=== PATIENT | female | born 1940 | race Caucasian/White ===

== ENCOUNTER 2022-04-30 10:33 | Emergency (ER) | payer MEDICARE, BC, SELFPAY ==
[2022-04-30 10:58] VITALS: BP 151/82; PULSE 89; RESP 16; TEMP 36.7; O2SAT 94; BMI 25.7
--- NOTE | 2022-04-30 11:16 | ED.GENADULT ---
HPI - General Adult General Time Seen by Provider: 11:17 Date Seen: 04/30/22 Chief complaint: Extremity Pain/Injury, Lower Stated complaint: Left leg infection Time Seen by Provider: 04/30/22 11:05 Source: patient, family and RN notes reviewed Mode of arrival: ambulatory Limitations: no limitations History of Present Illness HPI narrative: Madison is an 82-year-old female living at the [facility] brought in with concern of a wound on her left lower extremity. Nursing staff contacted them yesterday about the wound. Today it seemed worse and they are bringing her into the ER. They have not been documenting any fevers. LC denies any fevers or chills. She states it is not painful. Her daughter is not aware of any history of MRSA. 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 Her initial injury was from scraping it on a car door about a week ago. On review of her chart, last Tdap appears to be 07/12/2011. I will have nurses double check this on the [place] immunization website but will recommend immunization with TD if this indeed was her last dose. Related Data Home Medications Medication Instructions Recorded Confirmed aspirin 81 mg chewable tablet 81 mg PO QDAY 01/21/22 04/30/22 atorvastatin 40 mg tablet 40 mg PO .HS 01/21/22 04/30/22 donepezil 5 mg tablet 5 mg PO .HS 01/21/22 04/30/22 furosemide 20 mg tablet 20 mg PO QAM 01/21/22 04/30/22 omeprazole 20 mg tablet,delayed 20 mg PO QDAY 01/21/22 04/30/22 release paroxetine HCl 10 mg tablet 10 mg PO .HS 01/21/22 04/30/22 Previous Rx's Medication Instructions Recorded doxycycline monohydrate 100 mg 100 mg PO BID #20 tabs 04/30/22 tablet Allergies Allergy/AdvReac Type Severity Reaction Status Date / Time No Known Drug Allergies Allergy Verified 04/30/22 11:03 Review of Systems Status of ROS: Reports: unobtainable due to mental status Narrative: Patient's review of systems is done but do question her reliability due to her dementia. PFSH PFSH Social History Smoking Status: Former smoker What tobacco products do you use: cigarettes Smoking quit date/years: >15 years ago Do you use any of these nicotine containing products: None Second hand tobacco smoke exposure: No How often do you have a drink containing alcohol: never AUDIT-C Alcohol total score: 0 Non-prescribed substance use: denies use service: No Exam Const: Vital Signs, click to edit/add: Vital Signs - 24 hr 04/30/22 10:58 Temperature 98.1 F Pulse Rate [Pulse Oximeter] 89 Respiratory Rate 16 Blood Pressure [Ri ght Upper Arm] 151/82 H Pulse Oximetry 94 Oxygen Delivery Me thod Room Air Documenting provider has reviewed patient's vital signs: yes Common normals: no apparent distress, healthy appearing, alert and well nourished General appearance: cooperative, comfortable and well kempt Nutritional appearance: overweight Orientation/consciousness: Yes awake and Yes oriented to person HENMT: Common normals: normocephalic, head/scalp atraumatic and hearing grossly normal bilaterally Head and scalp: normocephalic and atraumatic Eye: Common normals: PERRL, EOMs intact bilaterally, conjunctivae normal and no scleral icterus Conjunctiva: conjunctiva(e) normal Pupil: PERRL Neck & C-Spine: Common normals: full ROM, no lymphadenopathy and supple Resp: Common normals: normal respiratory effort, no retractions, no use of accessory muscles and clear to auscultation bilaterally Auscultation: clear to auscultation bilaterally Cardio: Common normals: regular rate, regular rhythm, S1 normal heart sound, S2 normal heart sound, no gallops, no clicks and no murmurs Rate: regular rate Rhythm: regular rhythm Heart sounds: S1 normal and S2 normal GI: Common normals: Normal to inspection, nondistended, normoactive bowel sounds present, soft to palpation, non-tender and no hepatosplenomegaly Palpation: soft and no hepatosplenomegaly Extremity: Other: Patient has a bandage on her left lower extremity and underlying wound is along the proximal 1/3 of the lateral calf anteriorly. There is an open wound, no purulent drainage at this time. Looks as if she actually had a mild laceration from a the injury a week ago. There is surrounding erythema on the leg consistent with cellulitis. There is some increased swelling of the area but no generalized edema of the leg. She is tender when I palpate right along the wound, there is no fluctuance. Neuro: Sensorium/orientation: awake, alert and oriented to person Psych: Appearance: well kempt Course Course Hospital Course: Will place an IV is I will likely give her initial dose of antibiotics IV. We are going to get baseline labs on her, document creatinine and get a CBC in baseline inflammatory markers though there is something to compare to should she worsen. At this time, looking at her clinically, do not think she needs hospitalization but will weigh laboratory values in making this decision. Will ensure that her tetanus has not been done sooner on the [place] immunization website. Otherwise we will recommend her tetanus to be updated as well. Reevaluation(s) Reevaluation #1: Have reviewed labs, sed rate is still pending but overall these are looking good. Given that she does live in a fpc environment, I do think we need to consider MRSA being a higher risk for her. Right now she is not toxic and does not require hospitalization but I feel doing initial IV dose of antibiotics may benefit her. We will use doxycycline 100 mg IV. I did order a Tdap for her. Will discharge her on orals with outpatient follow-up. Have reviewed with them that this wound will need to heal by secondary intention. Time: 12:16 Reevaluation #2: Nursing staff was unsuccessful getting an IV in her, did state they could stop trying. She was difficult to obtain IV access 10. Clinically, given that they were having difficulty given an IV, I do not feel strongly that she has to have IV antibiotics in this situation. We will order dose of oral doxycycline for her now. Nursing staff will redressed her wound. Time: 12:44 Vital Signs Vital signs: Initial Vital Signs Temperature 98.1 F 04/30/22 10:58 Temperature Source Temporal Artery Scan 04/30/22 10:58 Pulse Rate 89 04/30/22 10:58 Pulse Rhythm 04/30/22 10:58 Pulse Strength 3+ Normal 04/30/22 10:58 Respiratory Rate 16 04/30/22 10:58 Blood Pressure 151/82 H 04/30/22 10:58 Blood Pressure Mean 105 04/30/22 10:58 Blood Pressure Position Sitting 04/30/22 10:58 Pulse Oximetry 94 04/30/22 10:58 Oxygen Delivery Method 04/30/22 10:58 Vital Signs Temperature 98.1 F 04/30/22 10:58 Pulse Rate 89 04/30/22 10:58 Respiratory Rate 16 04/30/22 10:58 Blood Pressure 151/82 H 04/30/22 10:58 Pulse Oximetry 94 04/30/22 10:58 Oxygen Delivery Method 04/30/22 10:58 Temperature 98.1 F 04/30/22 10:58 Pulse Rate 89 04/30/22 10:58 Respiratory Rate 16 04/30/22 10:58 Blood Pressure 151/82 H 04/30/22 10:58 Pulse Oximetry 94 04/30/22 10:58 Oxygen Delivery Method 04/30/22 10:58 Medical Decision Making Lab Data Lab results reviewed: Yes I reviewed the patient's lab results Labs: Lab Results 04/30/22 04/30/22 04/30/22 Range/Units 11:35 11:35 11:35 WBC 7.92 (4.50-11.00) K/uL RBC 4.22 (4.00-5.20) m/uL Hgb 13.0 (12.0-16.0) gm/dL Hct 39.5 (33.0-51.0) % MCV 94 (80-100) fL MCH 31 (26-34) pg MCHC 33 (32-36) gm/dL RDW Coeff of Mendoza 12.7 (11.5-15.5) % Plt Count 255 (140-440) K/uL Neut % (Auto) 58.8 (42.0-72.0) % Lymph % (Auto) 30.2 (20-44) % [place] % (Auto) 10.0 (0.0-11.0) % Eos % (Auto) 0.8 (0.0-7.0) % Baso % (Auto) 0.1 (0.0-3.0) % Neut # (Auto) 4.66 (1.7-7.0) K/uL Lymph # (Auto) 2.39 (0.90-2.90) K/uL [place] # (Auto) 0.80 (0.00-0.90) K/UL Eos # (Auto) 0.06 (0.00-0.50) K/uL Baso # (Auto) 0.01 (0.00-0.30) K/uL Abs Immat Gran (auto) 0.01 (0.00-0.30) K/uL ESR 86 H (2-20) mm/hr Sodium 139 (135-149) mmol/L Potassium 4.4 (3.6-5.1) mmol/L Chloride 103 (96-114) mmol/L Carbon Dioxide 28 (20-32) mmol/L BUN 18 (7-30) mg/dL Creatinine 1.0 (0.5-1.5) mg/dL Estimated Creat Clear 37.12 Estimated GFR 57 ml/min Glucose 120 H (60-115) mg/dL Calcium 9.4 (8.4-10.6) mg/dL C-Reactive Protein 0.8 (0.5-1.0) mg/dL Critical Care Time Critical Care Time Critical Care Time: No Discharge Plan Discharge Clinical Impression: Wound cellulitis Condition: Stable Instructions: Cellulitis (ED) Additional Instructions: Start oral doxycycline tonight and take as prescribed. Need to follow up in clinic in 2-3 days for recheck of this wound. Would recommend daily dressing changes or increased frequency if needed. Would recommend bacitracin, nonstick bandage and gauze if needed. If she develops fever, feel like she is becoming ill or having worsening cellulitis, do need to return to the ER for further evaluation. Prescriptions: New doxycycline monohydrate 100 mg tablet 100 mg PO BID Qty: 20 0RF No Action furosemide 20 mg tablet 20 mg PO QAM omeprazole 20 mg tablet,delayed release (DR/EC) 20 mg PO QDAY aspirin 81 mg tablet,chewable 81 mg PO QDAY atorvastatin 40 mg tablet 40 mg PO .HS donepezil 5 mg tablet 5 mg PO .HS paroxetine HCl 10 mg tablet 10 mg PO .HS Follow Up/Referrals: Osmani Rojas MD [Primary Care Provider] - Stand Alone Forms: [facility] Info Instructions
[2022-04-30 11:39] LABS: Basophils Absolute Auto 0.01 K/uL (0.00-0.30); Basophils Percent Auto 0.1 % (0.0-3.0); Eosinophils Absolute Auto 0.06 K/uL (0.00-0.50); Eosinophils Percent Auto 0.8 % (0.0-7.0); Hematocrit 39.5 % (33.0-51.0); Immature Granulocytes Abs Auto 0.01 K/uL (0.00-0.30); Lymphocytes Absolute Auto 2.39 K/uL (0.90-2.90); Lymphocytes Percent Auto 30.2 % (20-44); Mean Corpuscular HGB Conc 33 gm/dL (32-36); Mean Corpuscular Hemoglobin 31 pg (26-34); Mean Corpuscular Volume 94 fL (80-100); Neutrophils Absolute Auto 4.66 K/uL (1.7-7.0); Neutrophils Percent Auto 58.8 % (42.0-72.0); Platelet Count* 255 K/uL (140-440); RDW Coefficient of Variation % 12.7 % (11.5-15.5); Red Blood Count 4.22 m/uL (4.00-5.20); White Blood Count* 7.92 K/uL (4.50-11.00)
[2022-04-30 11:46] LABS: Slide Review Reflex No
[2022-04-30 11:52] LABS: Chloride* 103 mmol/L (96-114)
[2022-04-30 11:53] LABS: Potassium* 4.4 mmol/L (3.6-5.1); Sodium* 139 mmol/L (135-149)
[2022-04-30 11:55] LABS: Est. Creatinine Clearance* 37.12; Estimated Glomerular Filt Rate 57 ml/min
[2022-04-30 11:56] LABS: Blood Urea Nitrogen* 18 mg/dL (7-30); Calcium* 9.4 mg/dL (8.4-10.6); Carbon Dioxide* 28 mmol/L (20-32); Glucose* 120 mg/dL (60-115)
[2022-04-30 11:59] LABS: C Reactive Protein* 0.8 mg/dL (0.5-1.0)
[2022-04-30 12:27] LABS: Erythrocyte SedimentationRate* 86 mm/hr (2-20)
[2022-04-30] MEDS: TETANUS/DIPHTH/PERTUSSIS 0.5 ML SYRINGE IM (12:52)
== END 2022-04-30 13:08 | disposition home or self-care (01) ==
PROVIDERS: Emergency Provider Family Medicine; PCP Family Medicine
DX: L03.116 Cellulitis of left lower limb (principal); F03.90 Unspecified dementia, unspecified severity, without behavioral disturbance, psychotic disturbance, mood disturbance, and anxiety; Z79.82 Long term (current) use of aspirin; Z87.891 Personal history of nicotine dependence
CPT/HCPCS: 36415; 80048; 85025; 85651; 86140; 90471; 90715; 99284

== ENCOUNTER 2022-11-01 16:54 | Emergency (ER) | payer MEDICARE, BC, SELFPAY ==
[2022-11-01 17:08] VITALS: BP 168/84; PULSE 96; RESP 16; TEMP 36.2; O2SAT 97; BMI 26.6
--- NOTE | 2022-11-01 17:25 | CRLHL7_ITS ---
For Patients: As a result of the Cures Act, medical imaging exams and procedure reports are released immediately into your electronic medical record. You may view this report before your referring provider. If you have questions, please contact your health care provider. HISTORY: Left-sided abdominal pain. Suspected diverticulitis. History of appendectomy. TECHNIQUE: CT abdomen and pelvis with IV contrast. 74 mL [id number] IV. COMPARISON: CT abdomen and pelvis 01/29/2013. FINDINGS: Abdomen: No liver lesions. No bile duct dilation. No pancreatic mass or pancreatic duct dilation. No peripancreatic inflammatory change. No spleen lesions. Spleen is normal size. No adrenal nodules. Kidneys enhance symmetrically. Two subcentimeter hypodense lesions in the right kidney are too small to characterize but are likely cysts. No hydronephrosis. Small hiatal hernia. No dilated bowel. Colonic diverticulosis. No pericolonic inflammatory change. No free fluid. No lymphadenopathy. Atherosclerosis. Ectasia of the infrarenal abdominal aorta. Pelvis: No lymphadenopathy. Musculoskeletal: Right total hip arthroplasty. 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 Degenerative changes of the spine. Lower chest: Mild atelectasis in both lung bases. Atherosclerotic calcifications. IMPRESSION: 1. No acute abnormality in the abdomen or pelvis. 2. Colonic diverticulosis. Please note that all CT scans at this facility use dose modulation, iterative reconstruction, and/or weight-based dosing when appropriate to reduce radiation dose to as low as reasonably achievable. Dictated by Serjio Baker MD @ 11/01/2022 7:36:48 PM (Electronically Signed)
--- NOTE | 2022-11-01 17:35 | ED_ITS ---
HPI - General Adult General Chief complaint: Abdominal Pain Stated complaint: Upper abdominal pain Time Seen by Provider: 11/01/22 16:58 Source: patient and family Mode of arrival: ambulatory Limitations: altered mental status (Dementia) History of Present Illness HPI narrative: 82-year-old female resident of the [facility] presents to the ED with her daughter. Patient reports abdominal pain that started at around 8:00 a.m. this morning. Pain is located in the epigastric and abdominal left upper quadrant, worse with movement. No nausea or vomiting, no heartburn or reflux. Last bowel movement was earlier today and was normal. No blood in her stools. Has not had a colonoscopy in many years but no prior significant similar history or history of colon disease or cancers. No vomiting has been noted, no blood in her stools. No prior history of similar symptoms. Patient reports that she ate lunch normally today, it did not seem to affect her pain. She does have significant dementia so I do question her recall on this. Daughter is present today and does correct patient on timeline on a couple of things and this is helpful. No obvious fevers. Has not tried any pain medication to help with her symptoms. No recent abdominal trauma Past medical history notable for dementia, hyperlipidemia. She is on aspirin. Also GERD and anxiety as well as hypertension. No known history of his arrhythmias or coronary artery disease. Surgical history is notable for prior appendectomy at a young age, no recent surgeries, no recent colonoscopies. Home meds are aspirin, atorvastatin, Aricept, furosemide, omeprazole, paroxetine. Socially, she is a nonsmoker, nondrinker, , lives at [facility], good family support. No recent travel. ROS is notable for the abdominal symptoms as above only, otherwise denies times 12 systems. Related Data Home Medications Medication Instructions Recorded Confirmed aspirin 81 mg chewable tablet 81 mg PO QDAY 01/21/22 05/06/22 atorvastatin 40 mg tablet 40 mg PO . 01/21/22 05/06/22 donepezil 5 mg tablet 5 mg PO .HS 01/21/22 05/06/22 furosemide 20 mg tablet 20 mg PO QA 01/21/22 05/06/22 omeprazole 20 mg tablet,delayed 20 mg PO QDAY 01/21/22 05/06/22 release paroxetine HCl 10 mg tablet 10 mg PO .HS 01/21/22 05/06/22 Previous Rx's Medication Instructions Recorded doxycycline monohydrate 100 mg 100 mg PO BID #20 tabs 04/30/22 tablet doxycycline hyclate 100 mg tablet 100 mg PO BID #8 tabs 05/06/22 sulfamethoxazole 800 1 tab PO BID #14 tabs 05/06/22 mg-trimethoprim 160 mg tablet (Bactrim DS) Allergies Allergy/AdvReac Type Severity Reaction Status Date / Time No Known Drug Allergies Allergy Verified 05/06/22 12:50 PFSH [facility] Medical History History of coronary angiogram ?Z98.890 - Other specified postprocedural states (ICD-10) Surgical History History of appendectomy (06/30/09) ?Z90.49 - Acquired absence of other specified parts of digestive tract (ICD- 10) History of dilation and curettage (06/30/09) ?Z98.890 - Other specified postprocedural states (ICD-10) History of total hip replacement ?Z96.649 - Presence of unspecified artificial hip joint (ICD-10) Status post arthroscopy of left knee ?Z98.890 - Other specified postprocedural states (ICD-10) Status post arthroscopy of right knee ?Z98.890 - Other specified postprocedural states (ICD-10) Status post breast biopsy ?Z98.890 - Other specified postprocedural states (ICD-10) Status post tonsillectomy and adenoidectomy ?Z90.89 - Acquired absence of other organs (ICD-10) Social History Smoking Status: Former smoker What tobacco products do you use: cigarettes Smoking quit date/years: >15 years ago Do you use any of these nicotine containing products: None Second hand tobacco smoke exposure: No How often do you have a drink containing alcohol: never AUDIT-C Alcohol total score: 0 Non-prescribed substance use: denies use service: No Exam Const: Vital Signs, click to edit/add: Vital Signs - 24 hr 11/01/22 17:08 Temperature 97.2 F L Pulse Rate [Pulse Oximeter] 96 Respiratory Rate 16 Blood Pressure [[facility] Upper Arm] 168/84 H Pulse Oximetry 97 Oxygen Delivery Me thod Room Air Documenting provider has reviewed patient's vital signs: yes General appearance: cooperative and well kempt Other: Does appear quite uncomfortable. Visibly uncomfortable with movement. She is otherwise polite and cooperative. She is not a great historian but does seem reliable for review of systems and reporting of pain. HENMT: Common normals: normocephalic and head/scalp atraumatic Head and scalp: normocephalic and atraumatic Face and sinus: normal facial exam Mouth: oral and palatal mucosa normal Throat: posterior oropharynx normal Eye: Common normals: conjunctivae normal General eye: normal appearance of both eyes Conjunctiva: conjunctiva(e) normal Neck & C-Spine: Common normals: full ROM and no lymphadenopathy Resp: Common normals: normal respiratory effort, no use of accessory muscles and clear to auscultation bilaterally Effort & inspection: able to speak in complete sentences Auscultation: clear to auscultation bilaterally Cardio: Common normals: regular rate, regular rhythm, S1 normal heart sound, S2 normal heart sound and no murmurs Rate: regular rate Rhythm: regular rhythm Heart sounds: S1 normal and S2 normal GI: Other: Seems nondistended. She is quite markedly tender to the left upper quadrant and left mid abdomen. There is even a little bit of guarding. Bowel sounds seem normoactive throughout. There is no obvious hernias. Liver and spleen are not enlarged and there is no obvious mass. Extremity: Common normals: normal to inspection, normal capillary refill and no pedal edema Psych: Appearance: well kempt Attitude: engaged Mood and affect: euthymic mood Insight: fair Judgement: fair Other: Mild to moderate memory impairment. Skin: Common normals: no rashes or lesions noted General skin exam: no rashes or lesions noted Course Vital Signs Vital signs: Initial Vital Signs Temperature 97.2 F L 11/01/22 17:08 Temperature Source Temporal Artery Scan 11/01/22 17:08 Pulse Rate 96 11/01/22 17:08 Respiratory Rate 16 11/01/22 17:08 Blood Pressure 168/84 H 11/01/22 17:08 Blood Pressure Mean 112 H 11/01/22 17:08 Pulse Oximetry 97 11/01/22 17:08 Oxygen Delivery Method Room Air 11/01/22 17:08 Vital Signs Temperature 97.2 F L 11/01/22 17:08 Pulse Rate 96 11/01/22 17:08 Respiratory Rate 16 11/01/22 17:08 Blood Pressure 168/84 H 11/01/22 17:08 Pulse Oximetry 97 11/01/22 17:08 Oxygen Delivery Method Room Air 11/01/22 17:08 Temperature 97.2 F L 11/01/22 17:08 Pulse Rate 96 11/01/22 17:08 Respiratory Rate 16 11/01/22 17:08 Blood Pressure 168/84 H 11/01/22 17:08 Pulse Oximetry 97 11/01/22 17:08 Oxygen Delivery Method Room Air 11/01/22 17:08 Medical Decision Making MDM Narrative Medical decision making narrative: Pain really seems quite genuine and sharp. I am concerned with an acute abdomen, questioning a perforated diverticulitis as the most likely etiology, cannot exclude colitis, pancreatitis, volvulus, atypical presentation of other intra-abdominal symptoms. She has a polst that does not want extreme interventions but she is agreeable to a workup for this pain as it does seem quite acute and significant. I recommend IV Dilaudid, counseled family will probably make her confused and sleepy. IV Zofran, CT, basic labs. Once we know the etiology of her pain, we will have a better idea in discussing a treatment plan that still meets her care goals. Update: Patient has marked improvement in her pain. She is much more comfortable. The CT findings and lab findings are reviewed. You do seem to be any major findings other than a hiatal hernia. I am for pressed to think that this would explain the severity of her symptoms with her cognitive impairment, it certainly could. She like to go home, her daughter is comfortable with this after we discuss the findings. They do seem reliable for follow-up if there is worsening. They were agreeable to a little Tylenol and Carafate just to make sure that her symptoms do not rebound once the pain medicines wear off. Typical warning signs given, written instructions provided all questions answered. Lab Data Lab results reviewed: Yes I reviewed the patient's lab results Lab results narrative: All very reassuring. Labs: Lab Results 11/01/22 11/01/22 Range/Units 17:36 18:20 WBC 8.63 (4.50-11.00) K/uL RBC 4.17 (4.00-5.20) m/uL Hgb 12.7 (12.0-16.0) gm/dL Hct 38.6 (33.0-51.0) % MCV 93 (80-100) fL MCH 31 (26-34) pg MCHC 33 (32-36) gm/dL RDW Coeff of Mendoza 13.1 (11.5-15.5) % Plt Count 279 (140-440) K/uL Neut % (Auto) 65.8 (42.0-72.0) % Lymph % (Auto) 24.8 (20-44) % [place] % (Auto) 8.3 (0.0-11.0) % Eos % (Auto) 1.0 (0.0-7.0) % Baso % (Auto) 0.0 (0.0-3.0) % Neut # (Auto) 5.67 (1.7-7.0) K/uL Lymph # (Auto) 2.14 (0.90-2.90) K/uL [place] # (Auto) 0.70 (0.00-0.90) K/UL Eos # (Auto) 0.09 (0.00-0.50) K/uL Baso # (Auto) 0.00 (0.00-0.30) K/uL Sodium 136 (135-149) mmol/L Potassium 4.3 (3.6-5.1) mmol/L Chloride 102 (96-114) mmol/L Carbon Dioxide 27 (20-32) mmol/L BUN 19 (7-30) mg/dL Creatinine 1.0 (0.5-1.5) mg/dL Estimated Creat Clear 37.12 Estimated GFR 57 ml/min Glucose 105 (60-115) mg/dL Calcium 8.9 (8.4-10.6) mg/dL Total Bilirubin 0.4 (0.1-1.5) mg/dL AST 22 (12-35) U/L ALT 17 (4-35) U/L Alkaline Phosphatase 125 (40-150) U/L C-Reactive Protein 1.5 H (0.5-1.0) mg/dL Total Protein 8.4 H (6.0-8.3) g/dL Albumin 4.1 (3.3-5.0) g/dL Lipase 144 (23-300) U/L Urine Color Yellow (Yellow) Urine Appearance Cloudy A (Clear) Urine pH 5.5 (5.0-8.5) Ur Specific [place] 1.020 (1.000-1.030) Urine Protein Negative (Negative) Urine Glucose (UA) Negative (Negative) Urine Ketones Trace A (Negative) Urine Blood Trace-intact A (Negative) Urine Nitrite Negative (Negative) Urine Bilirubin Negative (Negative) Urine Urobilinogen 0.2 (0.2-1.0) Ur Leukocyte Esterase 3+ A (Negative) Urine RBC 0-2 (0-2) Urine WBC 10-25 A (0-5) Ur Squamous Epith Cells Moderate A (None-Few) Urine Bacteria None (None) Imaging Data CT scan - abdomen: Attestation: I have reviewed the pertinent imaging results. My impression: Hiatal hernia and some gas but really no other abnormalities. Radiologist's impression: IMPRESSION: 1. No acute abnormality in the abdomen or pelvis. 2. Colonic diverticulosis. Discharge Plan Discharge Clinical Impression: Hernia, hiatal Patient Disposition: Home, Self-Care Condition: Improved Instructions: Hiatal Hernia (DC) Additional Instructions: I am glad the CT scan and labs look good. I do think the source of your pain is a hiatal hernia, this is where the stomach slides up into the chest and is typically a chronic problem. Since it can become more painful. The fact that you have been able to eat and drink normally is reassuring. Your given Tylenol and a medicine called Carafate which will coat and help protect the stomach. Keep taking your omeprazole which is 1 of your common medications. Rarely, the CT scan can miss problems that are early. So if you keep having severe pain, vomiting, fevers or any significant worsening, you should come back to the emergency department. It is okay to keep using Tylenol and/or ibuprofen if you need to at home if the pain is mild. Activity Level: Activity as Tolerated Discharge Diet: Regular Prescriptions: No Action doxycycline hyclate 100 mg tablet 100 mg PO BID Qty: 8 0RF sulfamethoxazole-trimethoprim [Bactrim DS] 800-160 mg tablet 1 tab PO BID Qty: 14 0RF doxycycline monohydrate 100 mg tablet 100 mg PO BID Qty: 20 0RF furosemide 20 mg tablet 20 mg PO QAM omeprazole 20 mg tablet,delayed release (DR/EC) 20 mg PO QDAY aspirin 81 mg tablet,chewable 81 mg PO QDAY atorvastatin 40 mg tablet 40 mg PO .HS donepezil 5 mg tablet 5 mg PO .HS paroxetine HCl 10 mg tablet 10 mg PO .HS Follow Up/Referrals: Osmani Rojas MD [Primary Care Provider] - Stand Alone Forms: [facility] Info Instructions
[2022-11-01 17:43] LABS: Eosinophils Absolute Auto 0.09 K/uL (0.00-0.50); Hematocrit 38.6 % (33.0-51.0); Hemoglobin* 12.7 gm/dL (12.0-16.0); Immature Granulocytes Abs Auto 0.01 K/uL (0.00-0.30); Immature Granulocytes Pct Auto 0.1 %; Lymphocytes Absolute Auto 2.14 K/uL (0.90-2.90); Lymphocytes Percent Auto 24.8 % (20-44); Mean Corpuscular HGB Conc 33 gm/dL (32-36); Mean Corpuscular Hemoglobin 31 pg (26-34); Mean Corpuscular Volume 93 fL (80-100); Monocytes Percent Auto 8.3 % (0.0-11.0); Neutrophils Absolute Auto 5.67 K/uL (1.7-7.0); Neutrophils Percent Auto 65.8 % (42.0-72.0); Platelet Count* 279 K/uL (140-440); RDW Coefficient of Variation % 13.1 % (11.5-15.5); Red Blood Count 4.17 m/uL (4.00-5.20); White Blood Count* 8.63 K/uL (4.50-11.00)
[2022-11-01] MEDS: ONDANSETRON 2 MG/ML inj 4 MG IVP (17:45)
[2022-11-01] MEDS: HYDROmorphone 0.5 mg/0.5 ml inj 0.25 MG IVP (17:45)
[2022-11-01 17:59] LABS: Slide Review Reflex No
[2022-11-01 18:03] LABS: Albumin* 4.1 g/dL (3.3-5.0); Potassium* 4.3 mmol/L (3.6-5.1); Sodium* 136 mmol/L (135-149)
[2022-11-01 18:05] LABS: Bilirubin Total* 0.4 mg/dL (0.1-1.5); Chloride* 102 mmol/L (96-114); Est. Creatinine Clearance* 37.12; Estimated Glomerular Filt Rate 57 ml/min
[2022-11-01 18:06] LABS: Alanine Aminotransferase* 17 U/L (4-35); Alkaline Phosphatase* 125 U/L (40-150); Aspartate Amino Transferase* 22 U/L (12-35); Blood Urea Nitrogen* 19 mg/dL (7-30); Carbon Dioxide* 27 mmol/L (20-32); Glucose* 105 mg/dL (60-115); Lipase* 144 U/L (23-300); Total Protein* 8.4 g/dL (6.0-8.3)
[2022-11-01 18:07] LABS: Calcium* 8.9 mg/dL (8.4-10.6)
[2022-11-01 18:09] LABS: C Reactive Protein* 1.5 mg/dL (0.5-1.0)
[2022-11-01 18:42] LABS: Appearance Urine Cloudy (Clear); Bilirubin Urine Negative (Negative); Blood Urine Trace-intact (Negative); Color Urine Yellow (Yellow); Glucose Urine Negative (Negative); Ketones Urine Trace (Negative); Leukocyte Esterase Urine 3+ (Negative); Nitrite Urine Negative (Negative); Protein Urine Negative (Negative); Urobilinogen Urine 0.2 (0.2-1.0); pH Urine 5.5 (5.0-8.5)
[2022-11-01 19:04] LABS: RBC Urine 0-2 (0-2); Squamous Epithelial Cell Urine Moderate (None-Few)
== END 2022-11-01 20:09 | disposition home or self-care (01) ==
PROVIDERS: Emergency Provider Family Medicine; PCP Family Medicine
DX: K44.9 Diaphragmatic hernia without obstruction or gangrene (principal)
CPT/HCPCS: 36415; 74177; 80053; 81003; 81015; 83690; 85025; 86140; 87086; 87186; 96374; 96375; 99284; J1170; J2405; Q9967

== ENCOUNTER 2023-06-06 18:08 | Outpatient (CLI) | payer MEDICARE, BC, SELFPAY | END 2023-06-06 18:09 | disposition home or self-care (01) | LOC: AMB 06-08 00:42 | PROVIDERS: PCP Family Medicine; Visit Provider Emergency Medicine | DX: T14.90XA Injury, unspecified, initial encounter (principal); W01.0XXA Fall on same level from slipping, tripping and stumbling without subsequent striking against object, initial encounter; Y92.009 Unspecified place in unspecified non-institutional (private) residence as the place of occurrence of the external cause | CPT/HCPCS: A0998 ==

== ENCOUNTER 2023-06-12 10:38 | Outpatient (CLI) | payer MEDICARE, BC, SELFPAY | END 2023-06-12 10:39 | disposition home or self-care (01) | PROVIDERS: PCP Family Medicine; Visit Provider Emergency Medicine | DX: R77.9 Abnormality of plasma protein, unspecified (principal); I10 Essential (primary) hypertension; F03.90 Unspecified dementia, unspecified severity, without behavioral disturbance, psychotic disturbance, mood disturbance, and anxiety; E78.5 Hyperlipidemia, unspecified; L03.116 Cellulitis of left lower limb; Z13.29 Encounter for screening for other suspected endocrine disorder; R82.90 Unspecified abnormal findings in urine | CPT/HCPCS: 80048; 80076; 82607; 84443; 87086 ==

== ENCOUNTER 2023-06-26 10:36 | Outpatient (CLI) | payer MEDICARE, BC, SELFPAY | END 2023-06-26 10:37 | disposition home or self-care (01) | PROVIDERS: PCP Family Medicine; Visit Provider Emergency Medicine | DX: E78.5 Hyperlipidemia, unspecified (principal); R11.10 Vomiting, unspecified; I10 Essential (primary) hypertension; L03.116 Cellulitis of left lower limb; F03.90 Unspecified dementia, unspecified severity, without behavioral disturbance, psychotic disturbance, mood disturbance, and anxiety | CPT/HCPCS: 80061; 83690; 86140 ==

== ENCOUNTER 2023-07-08 21:40 | Outpatient (CLI) | payer MEDICARE, BC, SELFPAY ==
--- OUTSIDE RECORDS SUMMARY | 2023-08-04 11:13 | XMS_ITS | Clinical Summary ---
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 0 11/03/2012 Active PARoxetine (PAXIL) 10 mg tablet Take 1 tablet by mouth every morning. 0 11/03/2012 Active simvastatin (ZOCOR) 40 mg tablet Take 1 tablet by mouth at bedtime. 0 11/03/2012 Active furosemide (LASIX) 20 mg tablet Take 20 mg by mouth once daily if needed. 0 Active atropine 1 % ophthalmic ointment Place 1 Strip into inside lower eye lid of left eye daily at bedtime. 3.5 g 0 06/01/2013 Active cccufycf-iitwfxwxa-pr xamethasone (MAXITROL) ophthalmic ointment Place 1 Strip into inside lower eye lid of left eye 2 times daily. 3.5 g 0 06/01/2013 Active LORazepam (ATIVAN) 0.5 mg tab Take 1 tablet by mouth at bedtime if needed for Sleep. 5 tablet 0 06/01/2013 Active Social History Tobacco Use Types Packs/Day Years Used Date Smoking Tobacco: Former Cigarettes Q uit: 06/13/2005 Smokeless Tobacco: Never Tobacco Cessation:Counseling Given: Yes Comments:quit smoking age 67 Alcohol Use Standard Drinks/Week Comments Yes 0 (1 standard drink = 0.6 oz pur e alcohol) occasional Sex and Gender Information Value Date Recorded Sex Assigned at Not on file Gender Identity Not on file Sexual Orientation Not on file Obstetrics History Last Filed Vital Signs Vital Sign Reading Time Taken Comments Blood Pressure 142/58 06/01/2013 8:56 AM RAG SHREDDER Pulse 48 06/01/2013 8:56 AM RAG SHREDDER Temperature 36 ??C (96.8 ??F) 06/01/2013 6:00 AM RAG SHREDDER Respiratory Rate 16 06/01/2013 8:56 AM RAG SHREDDER Oxygen Saturation 97% 06/01/2013 8:56 AM RAG SHREDDER Inhaled Oxygen Concentration - - Weight 68 kg (150 lb) 06/01/2013 6:00 AM RAG SHREDDER Height 160 cm (5' 3) 06/01/2013 6:00 AM RAG SHREDDER Body Mass Index 26.57 06/01/2013 6:00 AM RAG SHREDDER Plan of Treatment Health Maintenance Due Date Last Done Comments COVID-19 vaccine series (#1) 1942 Tdap 1953 Depression screening for age 12+ 1954 BMI (ht and wt on same day) for age 18+ 01/20/1960 Tetanus booster 1962 Zoster (shingles) series for age 50+ (1 of 2) 01/19/19 92 DEXA/DXA scan for age 65+ 2007 Pneumococcal series for age 65+ (1 of 1 - PCV) 007 Influenza for age 65+ 03/14/2023 Advance Directives Latest Code Status on File Code Status Date Activated Date Inactivated Comments Full Code 06/01/2013 6:51 AM 06/01/2013 12:08 PM Care Teams Con[employer] Vault Maker Relationship Specialty Start Date End Date Bob, Osmani C, MD PCP - General Family Practice 10/28/12
== END 2023-07-08 21:41 | disposition home or self-care (01) ==
LOC: AMB 08-04 11:07
PROVIDERS: PCP Family Medicine; Visit Provider Student in an Organized Health Care Education/Training Program
DX: S09.90XA Unspecified injury of head, initial encounter (principal); R41.82 Altered mental status, unspecified; W19.XXXA Unspecified fall, initial encounter; Y92.128 Other place in nursing home as the place of occurrence of the external cause
CPT/HCPCS: A0425; A0429

== ENCOUNTER 2023-07-08 22:10 | Emergency (ER) | payer MEDICARE, BC, SELFPAY ==
[2023-07-08] VITALS (9 sets, daily range): BP systolic 116–148; BP diastolic 57–78; PULSE 64–86; RESP 22; TEMP 36.1; O2SAT 91–97; BMI 33.8
--- NOTE | 2023-07-08 22:15 | CRLHL7_ITS ---
For Patients: As a result of the Century Cures Act, medical imaging exams and procedure reports are released immediately into your electronic medical record. You may view this report before your referring provider. If you have questions, please contact your health care provider. INDICATION: fall CT CERVICAL SPINE WITHOUT CONTRAST TECHNIQUE: Multidetector axial CT imaging was performed through the cervical spine, without contrast. Sagittal and coronal reconstructions were generated. FINDINGS: No acute fractures are identified. Multilevel degenerative change is noted in the cervical spine, including diffuse degenerative disc disease and scattered facet joint degenerative changes. Osseous alignment is within normal limits and no subluxation is seen. Prevertebral soft tissues are unremarkable. Included portions of the airway and lung apices are within normal limits. IMPRESSION: 1. No fracture, subluxation, or other acute finding identified. 2. Cervical spondylosis, as noted above. ERIN WILSON MD [facility] Please note that all CT scans at this facility use dose modulation, iterative reconstruction, and/or weight-based dosing when appropriate to reduce radiation dose to as low as reasonably achievable. Dictated by: Freddy Wilson MD @ 07/08/2023 23:55:35 (Electronically Signed)
--- NOTE | 2023-07-08 22:15 | CRLHL7_ITS ---
For Patients: As a result of the Century Cures Act, medical imaging exams and procedure reports are released immediately into your electronic medical record. You may view this report before your referring provider. If you have questions, please contact your health care provider. INDICATION: fall CT HEAD WITHOUT CONTRAST TECHNIQUE: Multiple axial CT images were performed through the head without intravenous contrast administration. COMPARISON: 12/23/2016 head MRI. FINDINGS: No acute intracranial hemorrhage is identified. No extra-axial collections are evident and there is no mass effect or midline shift. There is mild diffuse age-related brain atrophy. Ventricular size and configuration are within normal limits for the patient`s age. Small chronic bilateral basal ganglia lacunar infarcts are noted. There is patchy hypodensity in the periventricular white matter, a nonspecific finding which most likely reflects chronic small vessel ischemic change. Intracranial atherosclerotic vascular calcifications are noted. Osseous structures are within normal limits and no fractures are seen. Included portions of the paranasal sinuses and mastoid air cells are normally aerated except for mucosal thickening in the maxillary sinuses bilaterally which is somewhat improved from before. IMPRESSION: 1. No acute intracranial abnormality identified. No fracture is seen. 2. Mild age-related brain atrophy, white matter hypodensity consistent with chronic small vessel ischemic change, small chronic bilateral basal ganglia lacunar infarcts, and intracranial atherosclerotic vascular calcifications. ERIN WILSON MD [facility] Dictated by Freddy Wilson MD @ 07/09/2023 12:00:52 AM Please note that all CT scans at this facility use dose modulation, iterative reconstruction, and/or weight-based dosing when appropriate to reduce radiation dose to as low as reasonably achievable. Dictated by: Freddy Wilson MD @ 07/09/2023 00:01:51 (Electronically Signed)
--- NOTE | 2023-07-08 22:43 | ED_ITS ---
HPI - Fall General Date Seen: 07/08/23 Chief Complaint: Fall/Minor Trauma Stated Complaint: Fall Time Seen by Provider: 07/08/23 22:14 Source: EMS Mode of arrival: EMS Limitations: no limitations History of Present Illness HPI Narrative: Patient is a 83-year-old female with a history of coronary artery disease, dementia, hypertension, hyperlipidemia presenting to the emergency department a fter a fall. She lives in assisted living facility by herself. Staff went to go check in on her and knows she was on the ground. Cannot say for sure she was uncertain but EMS was called to the fire department arrived patient has syncopal episode. She does have a laceration on the back of her head. Had required oxygen per EMS. Not on oxygen at baseline. Denies any symptoms right now but she does have baseline dementia does not best historian. Rest of her vital signs for EMS were stable. Related Data Previous Rx's Medication Instructions Recorded aspirin 81 mg chewable tablet 81 mg PO QDAY #100 tabs 06/26/23 atorvastatin 40 mg tablet 40 mg PO .HS #90 tabs 06/26/23 donepezil 5 mg tablet 5 mg PO .HS #90 tabs 06/26/23 furosemide 20 mg tablet 20 mg PO QAM #90 tabs 06/26/23 omeprazole 20 mg tablet,delayed 20 mg PO QDAY #90 tabs 06/26/23 release paroxetine HCl 10 mg tablet 10 mg PO .HS #90 tabs 06/26/23 mecobalamin (vitamin B12) 1,000 1,000 mcg sublingual QDAY #90 tabs 07/03/23 mcg disintegrating tablet,sublingual Allergies Allergy/AdvReac Type Severity Reaction Status Date / Time No Known Drug Allergies Allergy Verified 07/08/23 22:25 Review of Systems Status of ROS: Reports: unobtainable due to mental status [facility] Medical History B12 deficiency ?E53.8 - Deficiency of other specified B group vitamins (ICD-10) Vomiting ?R11.10 - Vomiting, unspecified (ICD-10) GERD (gastroesophageal reflux disease) ?K21.9 - Gastro-esophageal reflux disease without esophagitis (ICD-10) Intermittent vomiting ?R11.10 - Vomiting, unspecified (ICD-10) SVT (supraventricular tachycardia) ?I47.10 - Supraventricular tachycardia, unspecified (ICD-10) CAD (coronary artery disease) ?I25.10 - Atherosclerotic heart disease of [place] coronary artery without angina pectoris (ICD-10) Elevated blood protein ?R77.9 - Abnormality of plasma protein, unspecified (ICD-10) POLST (Physician Orders for Life-Sustaining Treatment) ?Z78.9 - Other specified health status (ICD-10) History of coronary angiogram ?Z98.890 - Other specified postprocedural states (ICD-10) Surgical History Status post tonsillectomy and adenoidectomy ?Z90.89 - Acquired absence of other organs (ICD-10) Status post arthroscopy of right knee ?Z98.890 - Other specified postprocedural states (ICD-10) Status post arthroscopy of left knee ?Z98.890 - Other specified postprocedural states (ICD-10) Status post breast biopsy ?Z98.890 - Other specified postprocedural states (ICD-10) History of total hip replacement ?Z96.649 - Presence of unspecified artificial hip joint (ICD-10) History of dilation and curettage (06/30/09) ?Z98.890 - Other specified postprocedural states (ICD-10) History of appendectomy (06/30/09) ?Z90.49 - Acquired absence of other specified parts of digestive tract (ICD- 10) Social History Smoking Status: Former smoker What tobacco products do you use: cigarettes Smoking quit date/years: >15 years ago Do you use any of these nicotine containing products: None Second hand tobacco smoke exposure: No How often do you have a drink containing alcohol: never AUDIT-C Alcohol total score: 0 Non-prescribed substance use: denies use service: No Exam Narrative: Exam Narrative: Const: Well-nourished, Well-developed, in no distress Eyes: PERRL, no conjunctival injection, and symmetrical lids HENT: Atraumatic external nose and ears. Moist mucous membranes. Laceration to back of head Neck: Symmetric, trachea midline, No thyromegaly. CVS: RRR, No murmurs or gallops. Peripheral pulses 2+ and equal in all ex tremities RESP: Unlabored respiratory effort. Clear to auscultation bilaterally. GI: Nontender/Nondistended, No rebound or guarding. MSK:Extremities w/o deformity, Normal Active ROM Skin: Warm, Dry. No rashes or lesions. Neuro: Normal Muscle tone, No focal neurological deficits. Psych: Awake, Alert, & Oriented to self and place. Appropriate mood and affect. Const: Vital Signs, click to edit/add: Vital Signs - 24 hr 07/08/23 22:18 07/08/23 22:25 07/08/23 22:52 Temperature 97 F L Pulse Rate 78 Pulse Rate [Pulse Oximeter] 80 Respiratory Rate 22 Blood Pressure Blood Pressure [Ri ght Upper Arm] 148/76 H Pulse Oximetry 91 92 Oxygen Delivery Me thod Nasal Cannula Room Air Oxygen Flow Rate 2 07/08/23 23:00 07/08/23 23:01 07/08/23 23:02 Temperature Pulse Rate 79 79 64 Pulse Rate [Pulse Oximeter] Respiratory Rate Blood Pressure 144/61 H Blood Pressure [Ri ght Upper Arm] Pulse Oximetry 95 95 95 Oxygen Delivery Me thod Nasal Cannula Oxygen Flow Rate 2 07/08/23 23:17 07/08/23 23:30 07/08/23 23:31 Temperature Pulse Rate 78 77 81 Pulse Rate [Pulse Oximeter] Respiratory Rate Blood Pressure 146/68 H 140/57 H Blood Pressure [Ri ght Upper Arm] Pulse Oximetry 96 96 95 Oxygen Delivery Me thod Nasal Cannula Nasal Cannula Nasal Cannula Oxygen Flow Rate 2 2 2 07/08/23 23:46 07/09/23 00:00 07/09/23 00:02 Temperature Pulse Rate 86 78 77 Pulse Rate [Pulse Oximeter] Respiratory Rate Blood Pressure 116/78 135/71 Blood Pressure [Ri ght Upper Arm] Pulse Oximetry 97 90 92 Oxygen Delivery Me thod Nasal Cannula Room Air Room Air Oxygen Flow Rate 2 07/09/23 00:02 07/09/23 00:02 07/09/23 00:16 Temperature Pulse Rate 77 77 85 Pulse Rate [Pulse Oximeter] Respiratory Rate Blood Pressure 135/71 135/71 152/78 H Blood Pressure [Ri ght Upper Arm] Pulse Oximetry 92 92 90 Oxygen Delivery Me thod Room Air Room Air Room Air Oxygen Flow Rate 07/09/23 00:31 07/09/23 00:47 07/09/23 01:01 Temperature Pulse Rate Pulse Rate [Pulse Oximeter] Respiratory Rate Blood Pressure 145/75 H 112/67 130/67 Blood Pressure [Ri ght Upper Arm] Pulse Oximetry Oxygen Delivery Me thod Room Air Room Air Room Air Oxygen Flow Rate Course Vital Signs Vital signs: Initial Vital Signs Oxygen Delivery Method Nasal Cannula 07/08/23 22:18 Oxygen Flow Rate 2 07/08/23 22:18 Vital Signs Oxygen Delivery Method Nasal Cannula 07/08/23 22:18 Oxygen Flow Rate 2 07/08/23 22:18 Temperature 97 F L 07/08/23 22:25 Pulse Rate 85 07/09/23 00:16 Respiratory Rate 22 07/08/23 22:25 Blood Pressure 130/67 07/09/23 01:01 Pulse Oximetry 90 07/09/23 00:16 Oxygen Delivery Method Room Air 07/09/23 01:01 Oxygen Flow Rate 2 07/08/23 23:46 MDM - Fall MDM Narrative Medical decision making narrative: Patient is is an 83-year-old female presenting to emergency department after a fall. She was found On the ground by her assisted living staff. She is comfort care only. Is alert at this time. Will CT scan her head and neck. I do not think is necessary to image anything further. Patient is satting 88% on room air but she is comfort cares only so I will not further investigate or treat this. She does have a laceration on the back of her head and I was able close with the hair apposition technique. Discharge Plan Discharge Clinical Impression: Fall Patient Disposition: Home, Self-Care Condition: Stable Instructions: Fall Prevention (ED) Additional Instructions: Return to emergency department for new worsening symptoms. Prescriptions: No Action mecobalamin (vitamin B12) 1,000 mcg tablet,disintegrating 1,000 mcg sublingual QDAY Qty: 90 3RF Rx Instructions: place tablet under tongue and allow to dissolve for at least30 secs before swallowing aspirin 81 mg tablet,chewable 81 mg PO QDAY Qty: 100 3RF atorvastatin 40 mg tablet 40 mg PO .HS Qty: 90 3RF donepezil 5 mg tablet 5 mg PO .HS Qty: 90 3RF furosemide 20 mg tablet 20 mg PO QAM Qty: 90 3RF omeprazole 20 mg tablet,delayed release (DR/EC) 20 mg PO QDAY Qty: 90 3RF paroxetine HCl 10 mg tablet 10 mg PO .HS Qty: 90 3RF Follow Up/Referrals: Osmani Rojas MD [Primary Care Provider] - Stand Alone Forms: [facility] Info Instructions Procedures Laceration Scalp: Site: scalp Size (cm): 1 Description: linear Depth: simple, single layer Skin layer closed with: other (Skin glue, hair apposition)
[2023-07-09] VITALS: PULSE 78; O2SAT 90
[2023-07-09 00:02] VITALS: BP 135/71; PULSE 77; O2SAT 92
[2023-07-09 00:16] VITALS: BP 152/78; PULSE 85; O2SAT 90
--- NOTE | 2023-07-09 00:26 | ED.NURSE ---
Call to EROS Briones ([phone]) and RN to RN handoff report given. EROS Briones states pt can be transported back to facility via ambulance.
--- NOTE | 2023-07-09 00:30 | ED.NURSE ---
Call to patient's primary and secondary contacts to give update and discuss charges regarding wheelchair transport via EMS back to pt's facility. No answer, VM left.
[2023-07-09 00:31] VITALS: BP 145/75
[2023-07-09 00:47] VITALS: BP 112/67
[2023-07-09 01:01] VITALS: BP 130/67
--- NOTE | 2023-07-09 01:11 | ED.NURSE ---
Pt toileted on bedside commode. Pt checked to ensure hearing aids in bilateral ears. Glasses placed on patient. Pt leaves ER via ambulance back to [facility] in [place]. Call to [facility] and updated of patient arrival time.
== END 2023-07-09 01:16 | disposition home or self-care (01) ==
PROVIDERS: Emergency Provider Student in an Organized Health Care Education/Training Program; PCP Family Medicine
DX: S01.01XA Laceration without foreign body of scalp, initial encounter (principal); W19.XXXA Unspecified fall, initial encounter
CPT/HCPCS: 12001; 70450; 72125; 99282; 99284

== ENCOUNTER 2023-07-09 01:07 | Outpatient (CLI) | payer MEDICARE, BC, SELFPAY | END 2023-07-09 01:08 | disposition home or self-care (01) | LOC: AMB 07-10 09:21 | PROVIDERS: PCP Family Medicine; Visit Provider Family Medicine | DX: Z99.3 Dependence on wheelchair (principal) | CPT/HCPCS: A0425; A0428 ==

== ENCOUNTER 2023-07-11 12:40 | Outpatient (CLI) | payer MEDICARE, BC, SELFPAY | END 2023-07-11 12:41 | disposition home or self-care (01) | LOC: AMB 07-15 11:10 | PROVIDERS: PCP Family Medicine; Visit Provider Emergency Medicine | DX: R21 Rash and other nonspecific skin eruption (principal); U07.1 COVID-19 | CPT/HCPCS: A0425; A0429 ==

== ENCOUNTER 2023-07-11 13:13 | Emergency (ER) | payer MEDICARE, BC, SELFPAY ==
[2023-07-11 13:33] VITALS: BP 147/54; PULSE 78; RESP 20; TEMP 36.4; O2SAT 90; BMI 27.4
--- NOTE | 2023-07-11 14:25 | ED.NURSE ---
Called [facility] assisted [facility] and asked for nursing staff to please call back.
[2023-07-11] MEDS: BACITRACIN OINTMENT BULK TUBE 1 APPLIC TOPICAL (14:55)
--- NOTE | 2023-07-11 15:08 | ED_ITS ---
HPI - Skin/Abscess/Foreign Bdy General Chief complaint: Skin/Abscess/Foreign Body Stated complaint: Rash, covid+ Time Seen by Provider: 07/11/23 13:20 Source: patient, family and EMS Mode of arrival: EMS Limitations: no limitations History of Present Illness HPI narrative: Patient's any 83-year-old female who is comfort cares only presenting to the emergency department for rash on her butt. She is brought in by EMS. She recently moved to memory care unit at her assisted living facility. He is also COVID positive. Staff at her assisted living states they noticed a small rash in her but early this morning but then states as the day went on it spread rapidly. They did notice there was a blister that popped. Patient usually does self toileting and then do not regularly check her diaper. She has been here 2 days ago after a fall. Her daughter is concerned about the level of care at the assisted living facility. She does state the patient appears to be at her mental baseline. Patient denies any pain at this time. No fevers or chills. Related Data Previous Rx's Medication Instructions Recorded aspirin 81 mg chewable tablet 81 mg PO QDAY #100 tabs 06/26/23 atorvastatin 40 mg tablet 40 mg PO .HS #90 tabs 06/26/23 donepezil 5 mg tablet 5 mg PO .HS #90 tabs 06/26/23 furosemide 20 mg tablet 20 mg PO QAM #90 tabs 06/26/23 omeprazole 20 mg tablet,delayed 20 mg PO QDAY #90 tabs 06/26/23 release paroxetine HCl 10 mg tablet 10 mg PO .HS #90 tabs 06/26/23 mecobalamin (vitamin B12) 1,000 1,000 mcg sublingual QDAY #90 tabs 07/03/23 mcg disintegrating tablet,sublingual bacitracin 500 unit/gram topical 1 applic topical TID 7 days 07/11/23 ointment #1,022.4 grams cephalexin 500 mg capsule 500 mg PO QID #40 caps 07/11/23 Allergies Allergy/AdvReac Type Severity Reaction Status Date / Time No Known Drug Allergies Allergy Verified 07/08/23 22:25 Review of Systems Status of ROS: Reports: 10 or more systems reviewed and unremarkable except as noted in History and below [facility] Medical History B12 deficiency ?E53.8 - Deficiency of other specified B group vitamins (ICD-10) Vomiting ?R11.10 - Vomiting, unspecified (ICD-10) GERD (gastroesophageal reflux disease) ?K21.9 - Gastro-esophageal reflux disease without esophagitis (ICD-10) Intermittent vomiting ?R11.10 - Vomiting, unspecified (ICD-10) SVT (supraventricular tachycardia) ?I47.10 - Supraventricular tachycardia, unspecified (ICD-10) CAD (coronary artery disease) ?I25.10 - Atherosclerotic heart disease of [place] coronary artery without angina pectoris (ICD-10) Elevated blood protein ?R77.9 - Abnormality of plasma protein, unspecified (ICD-10) POLST (Physician Orders for Life-Sustaining Treatment) ?Z78.9 - Other specified health status (ICD-10) History of coronary angiogram ?Z98.890 - Other specified postprocedural states (ICD-10) Surgical History Status post tonsillectomy and adenoidectomy ?Z90.89 - Acquired absence of other organs (ICD-10) Status post arthroscopy of right knee ?Z98.890 - Other specified postprocedural states (ICD-10) Status post arthroscopy of left knee ?Z98.890 - Other specified postprocedural states (ICD-10) Status post breast biopsy ?Z98.890 - Other specified postprocedural states (ICD-10) History of total hip replacement ?Z96.649 - Presence of unspecified artificial hip joint (ICD-10) History of dilation and curettage (06/30/09) ?Z98.890 - Other specified postprocedural states (ICD-10) History of appendectomy (06/30/09) ?Z90.49 - Acquired absence of other specified parts of digestive tract (ICD- 10) Social History Smoking Status: Former smoker What tobacco products do you use: cigarettes Smoking quit date/years: >15 years ago Do you use any of these nicotine containing products: None Second hand tobacco smoke exposure: No How often do you have a drink containing alcohol: never AUDIT-C Alcohol total score: 0 Non-prescribed substance use: denies use service: No Exam Narrative: Exam Narrative: Const: Well-nourished, Well-developed, in no distress Eyes: PERRL, no conjunctival injection, and symmetrical lids HENT: Atraumatic external nose and ears. Moist mucous membranes. Neck: Symmetric, trachea midline, No thyromegaly. CVS: RRR, No murmurs or gallops. Peripheral pulses 2+ and equal in all extremities RESP: Unlabored respiratory effort. Clear to auscultation bilaterally. GI: Nontender/Nondistended, No rebound or guarding. MSK:Extremities w/o deformity, Normal Active ROM Skin: Warm, Dry. Well demarcated erythematous rash seen on her gluteal region. Neuro: Normal Muscle tone, No focal neurological deficits. Psych: Awake, Alert, & Oriented x3. Appropriate mood and affect. Const: Vital Signs, click to edit/add: Vital Signs - 24 hr 07/11/23 13:33 Temperature 97.6 F Pulse Rate [Pulse Oximeter] 78 Respiratory Rate 20 Blood Pressure [Ri ght Upper Arm] 147/54 H Pulse Oximetry 90 Oxygen Delivery Me thod Room Air Course Vital Signs Vital signs: Initial Vital Signs Temperature 97.6 F 07/11/23 13:33 Temperature Source Temporal Artery Scan 07/11/23 13:33 Pulse Rate 78 07/11/23 13:33 Pulse Rhythm Regular 07/11/23 13:33 Respiratory Rate 20 07/11/23 13:33 Blood Pressure 147/54 H 07/11/23 13:33 Blood Pressure Mean 85 07/11/23 13:33 Blood Pressure Position Supine 07/11/23 13:33 Pulse Oximetry 90 07/11/23 13:33 Oxygen Delivery Method Room Air 07/11/23 13:33 Vital Signs Temperature 97.6 F 07/11/23 13:33 Pulse Rate 78 07/11/23 13:33 Respiratory Rate 20 07/11/23 13:33 Blood Pressure 147/54 H 07/11/23 13:33 Pulse Oximetry 90 07/11/23 13:33 Oxygen Delivery Method Room Air 07/11/23 13:33 Temperature 97.6 F 07/11/23 13:33 Pulse Rate 78 07/11/23 13:33 Respiratory Rate 20 07/11/23 13:33 Blood Pressure 147/54 H 07/11/23 13:33 Pulse Oximetry 90 07/11/23 13:33 Oxygen Delivery Method Room Air 07/11/23 13:33 Medications Administered Medications: Discontinued Medications Generic Name Dose Route Start Last Admin Trade Name Magnus PRN Reason Stop Dose Admin Bacitracin 1 applic 07/11/23 14:26 07/11/23 14:55 Bacitracin Ointment Bulk Tube TOPICAL 07/11/23 14:27 1 applic ONCE ONE Administration MDM - Skin/Abscess/Foreign Bdy MDM Narrative Medical decision making narrative: Patient is an 83-year-old female presenting to emergency department for a rash on her gluteal region. It is well demarcated and stops at her proximal posterior thigh in a straight line as if it is at the edge of the seat. Initially appeared ago could be fungal in nature but does not have any scaly appearance. There was thought that could be burn from sitting on a heating pad but there is no heating pad without in the memory care unit and no clear when how the patient would burn her gluteal region in this manner. With the rapid progression and well demarcation this could be erysipelas. While it is not objectively raise I cannot think of any other cause for this rash at this time. Patient is comfort cares only so this not want an extensive workup or hospitalization. Due to that we will start the patient on an antibiotic and discharged back to her halfway. Informed the daughter and staff to keep close eye on the rash. She will also be given bacitracin ointment. Discharged back to her assisted living and the daughter agrees with this plan Discharge Plan Discharge Clinical Impression: Erysipelas Patient Disposition: Home, Self-Care Condition: Stable Additional Instructions: Take the antibiotics as prescribed. I would continue to cover the wound with bacitracin 3 times a day along with the zinc cream. Please consider scheduled Tylenol for comfort. Make sure she is not sitting so diaper.. Return for new worsening symptoms Prescriptions: New cephalexin 500 mg capsule 500 mg PO QID Qty: 40 0RF bacitracin 500 unit/gram ointment 1 applic topical TID 7 Days Qty: 1022.4 0RF No Action mecobalamin (vitamin B12) 1,000 mcg tablet,disintegrating 1,000 mcg sublingual QDAY Qty: 90 3RF Rx Instructions: place tablet under tongue and allow to dissolve for at least30 secs before swallowing aspirin 81 mg tablet,chewable 81 mg PO QDAY Qty: 100 3RF atorvastatin 40 mg tablet 40 mg PO .HS Qty: 90 3RF donepezil 5 mg tablet 5 mg PO .HS Qty: 90 3RF furosemide 20 mg tablet 20 mg PO QAM Qty: 90 3RF omeprazole 20 mg tablet,delayed release (DR/EC) 20 mg PO QDAY Qty: 90 3RF paroxetine HCl 10 mg tablet 10 mg PO .HS Qty: 90 3RF Follow Up/Referrals: Osmani Rojas MD [Primary Care Provider] - Stand Alone Forms: [facility] Info Instructions
--- NOTE | 2023-07-11 15:15 | ED.NURSE ---
Applied bacitracin and zinc cream to resident's buttock and coccyx area.
--- NOTE | 2023-07-11 15:35 | ED.NURSE ---
Nurse to nurse report called to [facility]. Notified them of prescriptions and care updates/discharge plans.
== END 2023-07-11 15:54 | disposition home or self-care (01) ==
PROVIDERS: Emergency Provider Student in an Organized Health Care Education/Training Program; PCP Family Medicine
DX: R21 Rash and other nonspecific skin eruption (principal); A46 Erysipelas
CPT/HCPCS: 99283; A9270

== ENCOUNTER 2023-07-11 15:46 | Outpatient (CLI) | payer MEDICARE, BC, SELFPAY | END 2023-07-11 15:47 | disposition home or self-care (01) | LOC: AMB 07-15 11:20 | PROVIDERS: PCP Family Medicine; Visit Provider Emergency Medicine | DX: U07.1 COVID-19 (principal); F03.90 Unspecified dementia, unspecified severity, without behavioral disturbance, psychotic disturbance, mood disturbance, and anxiety | CPT/HCPCS: A0425; A0428 ==